=== PATIENT | male | born 1940 | race Caucasian/White ===

== ENCOUNTER → 2017-10-15 | Outpatient (CLI) | payer MEDICARE, BC ==
[2017-10-15 10:13] LABS: ALBUMIN 3.7 g/dL (3.4-5.0); ALBUMIN/GLOBULIN RATIO 1.1 (1.0-1.7); CALCIUM 9.5 mg/dL (8.5-10.1); CREATININE 1.2 mg/dL (0.7-1.3); GFR 58.7; POTASSIUM 4.8 mmol/L (3.5-5.1); TOTAL BILIRUBIN 0.4 mg/dL (0.2-1.0)
[2017-10-16 22:16] LABS: HEMOGLOBIN A1C 9.3 % (4.8-5.6)
== END | disposition home or self-care (01) ==
LOC: LAB 08:56
PROVIDERS: ATTEND Nurse Practitioner
DX: E78.5 Hyperlipidemia, unspecified (principal); E11.9 Type 2 diabetes mellitus without complications; I10 Essential (primary) hypertension; E78.00 Pure hypercholesterolemia, unspecified
CPT/HCPCS: 36415; 80053; 80061; 83036

== ENCOUNTER → 2018-03-22 | Outpatient (CLI) | payer MEDICARE, BC ==
[2018-03-22 10:03] LABS: ALBUMIN 3.4 g/dL (3.4-5.0); ALBUMIN/GLOBULIN RATIO 0.9 (1.0-1.7); CALCIUM 9.4 mg/dL (8.5-10.1); CREATININE 1.1 mg/dL (0.7-1.3); GFR 64.9; POTASSIUM 4.8 mmol/L (3.5-5.1); TOTAL BILIRUBIN 0.2 mg/dL (0.2-1.0); TOTAL PROTEIN 7.2 g/dL (6.4-8.2)
== END | disposition home or self-care (01) ==
LOC: LAB 08:27
PROVIDERS: ATTEND Nurse Practitioner
DX: E78.5 Hyperlipidemia, unspecified (principal)
CPT/HCPCS: 36415; 80053; 80061

== ENCOUNTER → 2018-10-10 | Outpatient (CLI) | payer MEDICARE, BC ==
[2018-10-10 10:35] LABS: ALBUMIN 3.2 g/dL (3.4-5.0); CALCIUM 9.3 mg/dL (8.5-10.1); CREATININE 1.1 mg/dL (0.7-1.3); GFR 64.7; POTASSIUM 4.7 mmol/L (3.5-5.1); TOTAL BILIRUBIN 0.3 mg/dL (0.2-1.0); TOTAL PROTEIN 6.5 g/dL (6.4-8.2)
== END | disposition home or self-care (01) ==
LOC: LAB 08:13
PROVIDERS: ATTEND Nurse Practitioner
DX: E78.5 Hyperlipidemia, unspecified (principal)
CPT/HCPCS: 36415; 80053; 80061

== ENCOUNTER → 2018-12-06 | Outpatient (CLI) | payer MEDICARE, BC ==
[2018-12-06 11:15] LABS: BASO % 1 % (0-3); EOS # 0.5 x10^3/uL (0.0-0.7); EOS % 8 % (0-3); HEMATOCRIT 41.4 % (39.0-53.0); HEMOGLOBIN 13.7 g/dL (13.0-17.5); LYMPH # 2.5 x10^3/uL (1.0-4.8); LYMPH % 38 % (24-48); MEAN CORPUSCULAR HEMOGLOBIN 28 pg (25-35); MEAN CORPUSCULAR HGB CONC 33 g/dL (31-37); MEAN CORPUSCULAR VOLUME 86 fL (79-100); MONO # 0.8 x10^3/uL (0.0-1.1); MONO % 12 % (0-9); NEUT # 2.7 x10^3uL (1.8-7.7); NEUT % 42 % (31-73); PLATELET COUNT 207 x10^3/uL (140-400); RED BLOOD COUNT 4.81 x10^6/uL (4.30-5.70); WHITE BLOOD COUNT 6.5 x10^3/uL (4.0-11.0)
[2018-12-06 11:23] LABS: ALBUMIN 3.4 g/dL (3.4-5.0); CREATININE 1.3 mg/dL (0.7-1.3); GFR 53.4; POTASSIUM 5.1 mmol/L (3.5-5.1); TOTAL BILIRUBIN 0.3 mg/dL (0.2-1.0); TOTAL PROTEIN 6.9 g/dL (6.4-8.2)
== END | disposition home or self-care (01) ==
LOC: LAB 10:32
PROVIDERS: ATTEND Internal Medicine Gastroenterology
DX: R10.13 Epigastric pain (principal)
CPT/HCPCS: 36415; 80053; 83690; 85025

== ENCOUNTER → 2020-01-05 | Outpatient (CLI) | payer BC, MEDICARE ==
--- NOTE | 2020-01-05 16:41 | RAD ---
EXAMINATION: SHOULDER BILAT 2+V CLINICAL HISTORY: Osteoarthritis bilateral shoulders TECHNIQUE: SHOULDER BILAT 2+V Number of Images/Views: 3 each COMPARISON: None FINDINGS: Glenohumeral joint alignment maintained bilaterally. Acromioclavicular joints maintained bilaterally. No acute fracture. Acromiohumeral interval maintained bilaterally. Amorphous calcification projected along the left humeral head/tuberosities may represent rotator cuff calcific tendinosis versus small joint body. Several amorphous calcifications projected along the right anterior glenohumeral joint and proximal humeral diaphysis may represent small joint bodies in the glenohumeral joint and biceps tendon sheath. IMPRESSION: Minimal degenerative changes bilateral shoulders. Probable joint bodies/calcific tendinosis as described. Electronically signed by: Oumar Chávez DO (01/05/2020 4:38 PM) [id number]
== END ==
LOC: DXRAD 16:04
PROVIDERS: ATTEND Physician Assistant
DX: M19.012 Primary osteoarthritis, left shoulder (principal); M19.011 Primary osteoarthritis, right shoulder
CPT/HCPCS: 73030

== ENCOUNTER → 2020-02-02 | Outpatient (CLI) | payer MEDICARE ==
[2020-02-02 09:05] LABS: ALBUMIN 3.6 g/dL (3.4-5.0); ALBUMIN/GLOBULIN RATIO 1.3 (1.0-1.7); CALCIUM 9.1 mg/dL (8.5-10.1); CREATININE 1.2 mg/dL (0.7-1.3); GFR 58.4; POTASSIUM 4.2 mmol/L (3.5-5.1); TOTAL BILIRUBIN 0.2 mg/dL (0.2-1.0); TOTAL PROTEIN 6.4 g/dL (6.4-8.2)
[2020-02-03 03:11] LABS: HEMOGLOBIN A1C 9.9 % (4.8-5.6)
== END ==
LOC: LAB 08:07
PROVIDERS: ATTEND Nurse Practitioner
DX: E78.5 Hyperlipidemia, unspecified (principal)
CPT/HCPCS: 36415; 80053; 80061; 83036

== ENCOUNTER → 2020-08-09 | Outpatient (CLI) | payer MEDICARE ==
[2020-08-09 10:38] LABS: ALBUMIN 3.6 g/dL (3.4-5.0); ALBUMIN/GLOBULIN RATIO 1.3 (1.0-1.7); CREATININE 1.5 mg/dL (0.7-1.3); POTASSIUM 4.9 mmol/L (3.5-5.1); TOTAL BILIRUBIN 0.4 mg/dL (0.2-1.0); TOTAL PROTEIN 6.4 g/dL (6.4-8.2)
[2020-08-10 01:10] LABS: HEMOGLOBIN A1C 11.7 % (4.8-5.6)
== END ==
LOC: LAB 08:31
PROVIDERS: ATTEND Nurse Practitioner
DX: E11.22 Type 2 diabetes mellitus with diabetic chronic kidney disease (principal)
CPT/HCPCS: 36415; 80053; 80061; 83036

== ENCOUNTER 2021-07-28 16:04 | Emergency (ER) | payer MEDICARE ==
[~2021-07-28] VITALS: Ht 175.3 cm; Wt 82.7 kg
[2021-07-28] MEDS ORDERED: NEOMY/BACITR/POLYMYXIN OINT PACKET. TP ONE (16:30)
[2021-07-28] MEDS ORDERED: DIPHTH,PERTUSS(ACELL),TET TOX 0.5 ML DISP.SYRIN. VAX IM ONE (16:30)
[2021-07-28] MEDS ORDERED: LIDOCAINE 2%/EPI 1:100,000 20 ML VIAL. IJ ONE (16:30)
[2021-07-28] MEDS ORDERED: IV NORMAL SALINE 1,000ML 1,000 ML IV ONE (16:30)
[2021-07-28] MEDS ORDERED: IOHEXOL 350 MG/ML 100 ML VIAL. IV ONE (17:00)
[2021-07-28 17:07] LABS: BASO % 1 % (0-3); EOS # 0.4 x10^3/uL (0.0-0.7); EOS % 5 % (0-3); HEMATOCRIT 33.3 % (39.0-53.0); HEMOGLOBIN 11.1 g/dL (13.0-17.5); LYMPH # 2.5 x10^3/uL (1.0-4.8); LYMPH % 28 % (24-48); MEAN CORPUSCULAR HEMOGLOBIN 29 pg (25-35); MEAN CORPUSCULAR HGB CONC 33 g/dL (31-37); MEAN CORPUSCULAR VOLUME 87 fL (79-100); MONO # 1.4 x10^3/uL (0.0-1.1); MONO % 15 % (0-9); NEUT # 4.7 x10^3uL (1.8-7.7); NEUT % 52 % (31-73); PLATELET COUNT 174 x10^3/uL (140-400); RED BLOOD COUNT 3.83 x10^6/uL (4.30-5.70); RED CELL DISTRIBUTION WIDTH 14.9 % (11.5-14.5)
[2021-07-28 17:12] LABS: CALCIUM 8.9 mg/dL (8.5-10.1); CREATININE 2.2 mg/dL (0.7-1.3); GFR 28.9; POTASSIUM 4.8 mmol/L (3.5-5.1)
--- NOTE | 2021-07-28 17:35 | PHYS DOC ---
Past History Past Medical History: CAD, UT Past Surgical History: Coronary Bypass Surgery (triple bypass), Knee Replacement (Left knee) Alcohol Use: None General Adult EDM: Chief Complaint: MECHANICAL FALL HPI: HPI: Patient is a 81-year-old male who presents with complaint of mechanical fall. Patient reports receiving a skin tear on the left upper arm secondary to tripping and falling while attempting to feed his chickens. Patient reports "it was dark" and did not see a hole resulting in him tripping and falling into chicken wire. Patient also reports falling while trying to get out of bed on 07/28/2021 PM. Patient struck his head on a coffee table resulting in a 3 cm laceration superior to the right eyebrow and epistaxis. Patient unsure is he actually lost consciousness during either events. Spouse reports he did loss consciousness on this last episode. Patient reports "cutting his blood pressure medication in half" roughly 2 weeks prior and states his blood pressure runs "in the low 100s or high 90s" throughout the day. Patient also recently tested positive on home COVID testing. Reports several family members also recently tested positive. Patient has a past surgical history of a triple bypass CABG and left knee replacement. Patient was unable to reports medications he takes on a daily basis. Patient denies fever, nausea, vomiting, skin rash, hematochezia, or dysuria. Patient denies having any previous syncopal or seizure-like episodes. Patient interview limited to severe deafness. HPI limited due to patient being hard of hearing. Review of Systems: Review of Systems: Constitutional: Denies fever or chills Eyes: Denies redness or eye pain, denies any acute visual changes HENT: Denies nasal congestion or sore throat. Reports laceration superior L eyebrow. Reports epistaxis Respiratory: Denies cough or shortness of breath Cardiovascular: Denies chest pain or palpitations GI: Denies abdominal pain, nausea, or vomiting : Denies dysuria or hematuria Musculoskeletal: Denies back pain or joint pain Integument: Denies rash. Reports skin tear left upper arm, laceration above L eyebrow, and nasal bridge abrasion Neurologic: Denies headache, focal weakness or sensory changes Complete systems were reviewed and found to be within normal limits, except as documented in this note. Current Medications: Current Meds: Current Medications Medications (Trade) Dose Ordered Sig/Robert Start Time Stop Time Status Last Admin Dose Admin Diphtheria/ Tetanus/Acell Pertussis (Boostrix) 0.5 ml ONCE ONCE 07/28/21 16:30 07/28/21 16:36 DC 07/28/21 16:30 0.5 ML Iohexol (Omnipaque 350 Mg/ml) 100 ml 1X ONCE 07/28/21 17:00 07/28/21 17:01 DC Lidocaine/ Epinephrine (Xylocaine 2%-Epi 1:100,000) 20 ml 1X ONCE 07/28/21 16:30 07/28/21 16:36 DC 07/28/21 16:30 20 ML Neomycin/ Polymyxin/ Bacitracin (Triple Antibiotic Ointment) 1 pkt 1X ONCE 07/28/21 16:30 07/28/21 16:36 DC 07/28/21 16:30 1 PKT Sodium Chloride 1,000 ml @ 1,000 mls/hr 1X ONCE 07/28/21 16:30 07/28/21 17:29 07/28/21 16:30 1,000 MLS/HR Allergies: Allergies: Allergies Coded Allergies Type Severity Reaction Last Updated Verified No Known Drug Allergies 07/28/21 No Physical Exam: PE: Constitutional: Well developed, elderly, no acute distress, non-toxic appearance HENT: Normocephalic, 3cm laceration superior R eyebrow Eyes: PERRL, EOMI, R conjunctiva normal, L conjunctiva w/ diffusion hemorrhage medial to iris, no discharge, ecchymosis left lower eyelid, negative battlesign Neck: Normal range of motion, no midline tenderness, supple Lungs & Thorax: No respiratory distress, equal chest rise and fall Abdomen: Soft, no tenderness; pelvis stable and nontender Skin: Warm, dry, no erythema, no rash, skin tear to left upper arm. 3 cm laceration to superior L eyebrow Back: No midline tenderness, no CVA tenderness Extremities: No tenderness, ROM intact, no edema Neurologic: Alert and oriented X 3, normal motor function, normal sensory function, no focal deficits noted Psychologic: Affect normal, judgment normal Current Patient Data: Labs: Laboratory Tests Test 07/28/21 16:10 White Blood Count 9.0 x10^3/uL (4.0-11.0) Red Blood Count 3.83 x10^6/uL (4.30-5.70) L Hemoglobin 11.1 g/dL (13.0-17.5) L Hematocrit 33.3 % (39.0-53.0) L Mean Corpuscular Volume 87 fL (79-100) Mean Corpuscular Hemoglobin 29 pg (25-35) Mean Corpuscular Hemoglobin Concent 33 g/dL (31-37) Red Cell Distribution Width 14.9 % (11.5-14.5) H Platelet Count 174 x10^3/uL (140-400) Neutrophils (%) (Auto) 52 % (31-73) Lymphocytes (%) (Auto) 28 % (24-48) Monocytes (%) (Auto) 15 % (0-9) H Eosinophils (%) (Auto) 5 % (0-3) H Basophils (%) (Auto) 1 % (0-3) Neutrophils # (Auto) 4.7 x10^3uL (1.8-7.7) Lymphocytes # (Auto) 2.5 x10^3/uL (1.0-4.8) Monocytes # (Auto) 1.4 x10^3/uL (0.0-1.1) H Eosinophils # (Auto) 0.4 x10^3/uL (0.0-0.7) Basophils # (Auto) 0.0 x10^3/uL (0.0-0.2) Sodium Level 139 mmol/L (136-145) Potassium Level 4.8 mmol/L (3.5-5.1) Chloride Level 99 mmol/L (98-107) Carbon Dioxide Level 30 mmol/L (21-32) Anion Gap 10 (6-14) Blood Urea Nitrogen 48 mg/dL (8-26) H Creatinine 2.2 mg/dL (0.7-1.3) H Estimated GFR (Cockcroft-Gault) 28.9 BUN/Creatinine Ratio 22 (6-20) H Glucose Level 109 mg/dL (70-99) H Calcium Level 8.9 mg/dL (8.5-10.1) Total Bilirubin Pending Aspartate Amino Transferase (AST) Pending Alanine Aminotransferase (ALT) Pending Alkaline Phosphatase Pending Creatine Kinase Pending Creatine Kinase MB (Mass) Pending Creatine Kinase MB Relative Index Pending Total Protein Pending Albumin Pending Albumin/Globulin Ratio Pending Vital Signs: Vital Signs Date Time Temp Pulse Resp B/P (MAP) Pulse Ox O2 Delivery O2 Flow Rate FiO2 07/28/21 16:13 98.4 70 16 104/54 (71) 100 Room Air EKG: EKG: @1738 07/28/2021 normal sinus rhythm, no ST segment elevations, low voltage QRS noted, Q-wave noted in lead III, HR 66 bpm, UT 176 ms, QRS 98 ms, QT/QTc 406/427 ms. Heart Score: C/O Chest Pain: N/A Course & Med Decision Making: Course & Med Decision Making Pertinent Labs and Imaging studies reviewed. (See chart for details) Patient is a 81-year-old male who presents with complaint of mechanical fall. Patient reports receiving skin tears on the left upper arm secondary to tripping and falling while attempting to feed his chickens. Patient reports "it was dark" and did not see a hole resulting in him tripping and falling into chickenwire. Patient also reports falling while trying to get out of bed on 07/28/2021 PM. Patient struck his head on a coffee table resulting in a 3 cm laceration superior to the left eyebrow and epistaxis. Patient neurologically intact. CT head/maxillofacial/cervical spine pending. EKG stable. Labs obtained and pending. Tetanus updated. Laceration requiring repair. 1800-signout given to Dr. Judd for further evaluation and final disposition. Discussed current findings and plan with patient and family, who acknowledge u nderstanding and agreement. Raquel Disclaimer: Raquel Disclaimer: This electronic medical record was generated, in whole or in part, using a voice recognition dictation system. Departure Departure: Impression: Primary Impression: Syncope Qualified Codes: R55 - Syncope and collapse Additional Impressions: Laceration of face Qualified Codes: S01.81XA - Laceration without foreign body of other part of head, initial encounter Skin tear Referrals: SHANTHI MURO MD (PCP) OSVALDO MARTINEZ DO July 28, 2021 17:35
[2021-07-28 17:39] LABS: ALBUMIN 3.3 g/dL (3.4-5.0); ALBUMIN/GLOBULIN RATIO 1.3 (1.0-1.7); TOTAL BILIRUBIN 0.5 mg/dL (0.2-1.0); TOTAL PROTEIN 5.9 g/dL (6.4-8.2)
[2021-07-28 18:01] LABS: INFLUENZA A PATIENT NEGATIVE (NEGATIVE); INFLUENZA B PATIENT NEGATIVE (NEGATIVE)
--- NOTE | 2021-07-28 18:34 | RAD ---
CT HEAD AND C-SPINE WO, CT MAXILLOFACIAL WITHOUT CONTRAST dated 07/28/2021 5:38 PM. Comparison: None. Clinical Indication: Reason: pain s/p fall / Spl. Instructions: / History: HEAD AND NECK PAIN Technical factors: Contiguous 5 mm axial images of the head were obtained from the skullbase to the v ertex. No contrast was administered. In addition, 3 mm axial images of the cervical spine and maxillo facial bones were acquired with thin cut coronal and sagittal reconstructions. One or more of the following individualized dose reduction techniques were utilized for this examinat ion: 1. Automated exposure control 2. Adjustment of the mA and/or kV according to patient size 3. Use of iterative reconstruction technique Findings head: Ventricles and sulci are mildly prominent for age. No midline shift or mass effect. Minimal patchy lo w density in the deep/subcortical periventricular white matter. No hemorrhage or extra-axial collecti on. Posterior fossa and brainstem unremarkable. There is a soft tissue laceration over the left for head. No underlying calvarial fracture. IMPRESSION HEAD: 1. No evidence of acute intracranial hemorrhage or mass. 2. Mild chronic small vessel ischemic changes and atrophy. 3. Soft tissue swelling over the left supraorbital region with no evidence of underlying fracture. Findings maxillofacial: There are fractures of the bilateral nasal bone. The left-sided nasal bone fracture is mildly depress ed and there is mild displacement. There is likely a fracture of the nasal septum anteriorly with sli ght nasal septal deviation of the right. The orbital dobbs and maxillary dobbs are intact. Zygomatic arches are intact. No evidence of mandibular fracture. There is mild mucosal thickening of the bilateral maxillary and ethmoid sinuses. Frontal sinuses and sphenoid sinuses are clear. Mastoid air cells and middle ears are clear. No additional soft tissue ab normality. IMPRESSION MAXILLOFACIAL: 1. Bilateral nasal bone fractures, mildly depressed on the left. 2. Mild sinus disease. Findings cervical spine: Images were acquired from the skull base to T1. There is straightening of the normal cervical lordosi s, otherwise sagittal alignment is anatomic. Vertebral body heights are maintained. No prevertebral s oft tissue swelling. Posterior elements are intact. No fractures are identified. Moderate endplate hypertrophic changes. Moderate multilevel disc space narrowing and uncovertebral sp urring. There is mild multilevel facet arthropathy. There is resultant mild central stenosis at C3-C4 , C4-C5, C5-C6 and C6-C7. There is also mild to moderate foraminal narrowing at the mid to lower cerv ical levels. Visualized soft tissue structures are unremarkable. Low-density focus in the left lobe thyroid gland measuring about 10 mm. There is also a low-density focus in the right lobe thyroid gland measuring 8 mm. Limited images of the lung apices are grossly clear. Emphysematous changes are noted. IMPRESSION CERVICAL SPINE: 1. No evidence of fracture or malalignment. 2. Moderate multilevel spondylosis. Electronically signed by: Woo Mills MD (07/28/2021 6:32 PM) ISAAC
--- NOTE | 2021-07-28 18:38 | PHYS DOC ---
Past History Past Medical History: CAD, [place] Past Surgical History: Coronary Bypass Surgery (triple bypass), Knee Replacement (Left knee) Alcohol Use: None General Adult EDM: Chief Complaint: MECHANICAL FALL HPI: HPI: Patient is an 81-year-old male that was initially seen by Dr. Martinez. Please see his note for H&P and HPI. I assumed care at 1800 tonight. The patient had a fall versus syncope or near syncope at home. He sustained lacerations of his nose, underneath his left eyelid as well as his forehead. The patient reports he does not believe he lost consciousness. He denies headache, dizziness, shira tigo. He denies chest pain, dyspnea, palpitations. He denies abdominal pain, nausea, vomiting. At time of transfer of care, CT imaging and laboratory exams were pending. The patient is very adamant that he does not wish to stay for any admission or for further evaluation beyond the ED today. He does consent to having laceration repair. Please see associated notes for details of laceration repair. Review of Systems: Review of Systems: See Dr. Martinez's note, see HPI. Current Medications: Current Meds: Current Medications Medications (Trade) Dose Ordered Sig/Robert Start Time Stop Time Status Last Admin Dose Admin Diphtheria/ Tetanus/Acell Pertussis (Boostrix) 0.5 ml ONCE ONCE 07/28/21 16:30 07/28/21 16:36 DC 07/28/21 16:30 0.5 ML Iohexol (Omnipaque 350 Mg/ml) 100 ml 1X ONCE 07/28/21 17:00 07/28/21 17:01 DC Lidocaine/ Epinephrine (Xylocaine 2%-Epi 1:100,000) 20 ml 1X ONCE 07/28/21 16:30 07/28/21 16:36 DC 07/28/21 16:30 20 ML Neomycin/ Polymyxin/ Bacitracin (Triple Antibiotic Ointment) 1 pkt 1X ONCE 07/28/21 16:30 07/28/21 16:36 DC 07/28/21 16:30 1 PKT Sodium Chloride 1,000 ml @ 1,000 mls/hr 1X ONCE 07/28/21 16:30 07/28/21 17:29 DC 07/28/21 16:30 1,000 MLS/HR Allergies: Allergies: Allergies Coded Allergies Type Severity Reaction Last Updated Verified No Known Drug Allergies 07/28/21 No Physical Exam: PE: Constitutional: Well developed, well nourished, no acute distress, non-toxic appearance. [] HENT: There is a rather large subcutaneous, round laceration of his forehead, just above his left eyebrow, just to the left of midline. No galeal laceration, the fascia is exposed. No visible contamination of the wound. No step-offs or cephalhematoma. No tenderness. He does have a V-shaped subcutaneous laceration of anterior nose. There is subtle left periorbital contusion. Soft tissue swelling of the nasal bridge is noted. Septum is midline. No rhinorrhea or epistaxis. No septal hematoma is noted. Eyes: PERRL, EOMI, left medial subconjunctival hemorrhage. No hyphema. Mild left periorbital contusion. There is a superficial laceration just below the left eyelid, not involving the lid margin. No pain with extraocular movements. No enophthalmos or exophthalmos noted. Neck: Normal range of motion, no tenderness, supple, no stridor. [] Cardiovascular:Heart rate regular rhythm Lungs & Thorax: Bilateral breath sounds clear to auscultation [] Skin: Skin tear and superficial abrasion of the left shoulder and left arm. Multiple superficial contusions of the left hand and left arm. Laceration of the left forehead, laceration below the left eye, laceration of the nasal bridge. See above. Back: No tenderness, no CVA tenderness. [] Extremities: No tenderness, no cyanosis, no clubbing, ROM intact, no edema. [] Neurologic: Alert and oriented X 3, normal motor function, normal sensory function, no focal deficits noted. 5 out of 5 motor strength all 4 extremities. Cranial nerves II through XII grossly intact. Speech is clear and fluent. Gait is steady. No gait ataxia. Psychologic: Affect normal, judgement normal, mood normal. [] Current Patient Data: Labs: Laboratory Tests Test 07/28/21 16:10 07/28/21 17:03 White Blood Count 9.0 x10^3/uL (4.0-11.0) Red Blood Count 3.83 x10^6/uL (4.30-5.70) L Hemoglobin 11.1 g/dL (13.0-17.5) L Hematocrit 33.3 % (39.0-53.0) L Mean Corpuscular Volume 87 fL (79-100) Mean Corpuscular Hemoglobin 29 pg (25-35) Mean Corpuscular Hemoglobin Concent 33 g/dL (31-37) Red Cell Distribution Width 14.9 % (11.5-14.5) H Platelet Count 174 x10^3/uL (140-400) Neutrophils (%) (Auto) 52 % (31-73) Lymphocytes (%) (Auto) 28 % (24-48) Monocytes (%) (Auto) 15 % (0-9) H Eosinophils (%) (Auto) 5 % (0-3) H Basophils (%) (Auto) 1 % (0-3) Neutrophils # (Auto) 4.7 x10^3uL (1.8-7.7) Lymphocytes # (Auto) 2.5 x10^3/uL (1.0-4.8) Monocytes # (Auto) 1.4 x10^3/uL (0.0-1.1) H Eosinophils # (Auto) 0.4 x10^3/uL (0.0-0.7) Basophils # (Auto) 0.0 x10^3/uL (0.0-0.2) Prothrombin Time 11.0 SEC (9.4-11.4) Prothrombin Time INR 1.1 (0.9-1.1) Activated Partial Thromboplast Time 24 SEC (23-33) Sodium Level 139 mmol/L (136-145) Potassium Level 4.8 mmol/L (3.5-5.1) Chloride Level 99 mmol/L (98-107) Carbon Dioxide Level 30 mmol/L (21-32) Anion Gap 10 (6-14) Blood Urea Nitrogen 48 mg/dL (8-26) H Creatinine 2.2 mg/dL (0.7-1.3) H Estimated GFR (Cockcroft-Gault) 28.9 BUN/Creatinine Ratio 22 (6-20) H Glucose Level 109 mg/dL (70-99) H Lactic Acid Level 1.5 mmol/L (0.4-2.0) Calcium Level 8.9 mg/dL (8.5-10.1) Total Bilirubin 0.5 mg/dL (0.2-1.0) Aspartate Amino Transferase (AST) 42 U/L (15-37) H Alanine Aminotransferase (ALT) 79 U/L (16-63) H Alkaline Phosphatase 57 U/L (46-116) Creatine Kinase 133 U/L (39-308) Creatine Kinase MB (Mass) 1.0 ng/mL (0.0-3.6) Creatine Kinase MB Relative Index 0.8 % (0-4) Troponin I High Sensitivity 8 ng/L (4-75) Total Protein 5.9 g/dL (6.4-8.2) L Albumin 3.3 g/dL (3.4-5.0) L Albumin/Globulin Ratio 1.3 (1.0-1.7) Influenza Type A (Rapid) Negative (NEGATIVE) Influenza Type B (Rapid) Negative (NEGATIVE) SARS-CoV-2 Antigen (Rapid) Positive (NEGATIVE) *A Vital Signs: Vital Signs Date Time Temp Pulse Resp B/P (MAP) Pulse Ox O2 Delivery O2 Flow Rate FiO2 07/28/21 18:19 88 16 125/44 (71) 98 Room Air 07/28/21 16:13 98.4 EKG: EKG: [] Radiology/Procedures: Radiology/Procedures: IMAGING REPORT Signed PATIENT: MARGE PAEZ ACCOUNT: [id number] : 1940 LOCATION: ER AGE: 81 SEX: M EXAM STATUS: REG ER ORD. PHYSICIAN: WOO MARTINEZ DO REASON: pain s/p fall PROCEDURE: CT HEAD AND CERVICAL SPINE WO CT HEAD AND C-SPINE WO, CT MAXILLOFACIAL WITHOUT CONTRAST dated 07/28/2021 5:38 PM. Comparison: None. Clinical Indication: Reason: pain s/p fall / Spl. Instructions: / History: HEAD AND NECK PAIN Technical factors: Contiguous 5 mm axial images of the head were obtained from the skullbase to the vertex. No contrast was administered. In addition, 3 mm axial images of the cervical spine and maxillofacial bones were acquired with thin cut coronal and sagittal reconstructions. One or more of the following individualized dose reduction techniques were utilized for this examination: 1. Automated exposure control 2. Adjustment of the mA and/or kV according to patient size 3. Use of iterative reconstruction technique Findings head: Ventricles and sulci are mildly prominent for age. No midline shift or mass effect. Minimal patchy low density in the deep/subcortical periventricular white matter. No hemorrhage or extra-axial collection. Posterior fossa and brainstem unremarkable. There is a soft tissue laceration over the left for head. No underlying calvarial fracture. IMPRESSION HEAD: 1. No evidence of acute intracranial hemorrhage or mass. 2. Mild chronic small vessel ischemic changes and atrophy. 3. Soft tissue swelling over the left supraorbital region with no evidence of underlying fracture. Findings maxillofacial: There are fractures of the bilateral nasal bone. The left-sided nasal bone fracture is mildly depressed and there is mild displacement. There is likely a fracture of the nasal septum anteriorly with slight nasal septal deviation of the right. The orbital dobbs and maxillary dobbs are intact. Zygomatic arches are intact. No evidence of mandibular fracture. There is mild mucosal thickening of the bilateral maxillary and ethmoid sinuses. Frontal sinuses and sphenoid sinuses are clear. Mastoid air cells and middle ears are clear. No additional soft tissue abnormality. IMPRESSION MAXILLOFACIAL: 1. Bilateral nasal bone fractures, mildly depressed on the left. 2. Mild sinus disease. Findings cervical spine: Images were acquired from the skull base to T1. There is straightening of the normal cervical lordosis, otherwise sagittal alignment is anatomic. Vertebral body heights are maintained. No prevertebral soft tissue swelling. Posterior elements are intact. No fractures are identified. Moderate endplate hypertrophic changes. Moderate multilevel disc space narrowing and uncovertebral spurring. There is mild multilevel facet arthropathy. There is resultant mild central stenosis at C3-C4, C4-C5, C5-C6 and C6-C7. There is also mild to moderate foraminal narrowing at the mid to lower cervical levels. Visualized soft tissue structures are unremarkable. Low-density focus in the left lobe thyroid gland measuring about 10 mm. There is also a low-density focus in the right lobe thyroid gland measuring 8 mm. Limited images of the lung apices are grossly clear. Emphysematous changes are noted. IMPRESSION CERVICAL SPINE: 1. No evidence of fracture or malalignment. 2. Moderate multilevel spondylosis. Electronically signed by: Woo Mills MD (07/28/2021 6:32 PM) [facility] [place] [facility] [place] AND SIGNED BY: WOO MILLS MD DATE: 07/28/211823 CC: SHANTHI MURO MD; WOO MARTINEZ DO ~ IMAGING REPORT Signed PATIENT: MARGE PAEZ ACCOUNT: [id number] : 1940 LOCATION: ER AGE: 81 SEX: M EXAM STATUS: REG ER ORD. PHYSICIAN: WOO MARTINEZ DO REASON: pain s/p fall, COVID+ PROCEDURE: CT CHEST WO CONTRAST CT chest without contrast dated 07/28/2021. COMPARISON: None. INDICATION: Pain after fall. TECHNIQUE: Contiguous axial imaging the chest performed without the administration of diffuse contrast. One or more of the following individualized dose reduction techniques were utilized for this examination: 1. Automated exposure control 2. Adjustment of the mA and/or kV according to patient size 3. Use of iterative reconstruction technique FINDINGS: Heart size mildly enlarged. No pericardial effusion. Coronary artery calcifications with evidence prior CABG procedure. Ectasia of the ascending thoracic aorta measuring 4.2 cm transverse. No mediastinal, hilar or axillary lymphadenopathy. There are low-density nodules in the bilateral thyroid gland measuring 10 mm on the left and 12 mm on the right. Central airways are patent. There is moderate emphysema. Scattered calcified granuloma. No consolidation or pleural effusion. No pneumothorax. Images of the upper abdomen are unremarkable. There is a small hiatal hernia. Gallbladder surgically absent. Bone window show no acute findings. There are old healed rib fractures on the right. Multilevel spondylosis. IMPRESSION: 1. No acute abnormality of chest. 2. Moderate emphysema. 3. Coronary artery calcifications and mild aneurysmal dilation of the ascending thoracic aorta. 4. Indeterminate low-density nodule of the bilateral thyroid gland. Electronically signed by: Woo Mills MD (07/28/2021 6:36 PM) [facility] [place] AND SIGNED BY: WOO MILLS MD DATE: 07/28/211831 CC: SHANTHI MURO MD; ORLANDO LOAIZA DO; WOO MARTINEZ DO ~ Heart Score: C/O Chest Pain: No Risk Factors: Risk Factors: DM, Current or recent (<one month) smoker, HTN, HLP, family history of CAD, obesity. Risk Scores: Score 0 - 3: 2.5% MACE over next 6 weeks - Discharge Home Score 4 - 6: 20.3% MACE over next 6 weeks - Admit for Clinical Observation Score 7 - 10: 72.7% MACE over next 6 weeks - Early Invasive Strategies Course & Med Decision Making: Course & Med Decision Making Pertinent Labs and Imaging studies reviewed. (See chart for details) The patient tolerated laceration repair well. His tetanus is up-to-date. He declines pain medications. I have discussed all of the findings, differential diagnosis and plan of care with him. He continues to adamantly declined admission. I recommend he contact his primary care physician tomorrow to discuss his symptoms further. He also has a nasal fracture, with overlying laceration. This will be treated as an open fracture. I given a dose of oral Keflex, he is prescribed Keflex for discharge home. Wound care instructions are provided. Strict return precautions are given. He verbalizes understanding. He is awake, alert, oriented x3, verbalizes understanding of risks of leaving/not being admitted, including missed or serious diagnoses, such as [place], TIA, CVA, delayed hemorrhage, permanent disability or even . Dragon Disclaimer: Dragon Disclaimer: This electronic medical record was generated, in whole or in part, using a voice recognition dictation system. Laceration Repair Lac Repair Indication: Lacerations of the left forehead and of the nose Procedure: The patient was seated on the ED gurney. He gave verbal consent for laceration repair. 1% lidocaine with epinephrine was utilized for local anesthesia. Adequate anesthesia was achieved. His wounds were cleaned with Betadine, copiously irrigated with sterile normal saline. The wounds were explored, no foreign bodies are noted. For the left forehead laceration, a total of 3 subcuticular 4-0 Vicryl sutures were placed. Adequate deep closure is established. A total of 5 simple interrupted 4-0 Ethilon sutures were placed to the skin. Adequate wound eversion, hemostasis and closure was achieved. For the nasal laceration, a total of three 4-0 Ethilon simple interrupted sutures were placed. Adequate wound eversion, hemostasis and closure was achieved. For the superficial laceration below his left eyelid, I utilized Dermabond. Adequate closure was established. Total repaired wound length: Forehead laceration length approximately 3 cm. Nasal laceration approximately 2 cm. Laceration below the left eye approximately 1 cm. The patient tolerated the procedure well. Complications: None. Departure Departure: Impression: Primary Impression: Syncope Qualified Codes: R55 - Syncope and collapse Additional Impressions: Skin tear Laceration of face Qualified Codes: S01.81XA - Laceration without foreign body of other part of head, initial encounter Forehead laceration Qualified Codes: S01.81XA - Laceration without foreign body of other part of head, initial encounter Nasal laceration Qualified Codes: S01.21XA - Laceration without foreign body of nose, initial encounter Open nasal fracture Qualified Codes: S02.2XXB - Fracture of nasal bones, initial encounter for open fracture Subconjunctival hemorrhage of left eye Disposition: HOME / SELF CARE / HOMELESS Condition: STABLE Referrals: SHANTHI MURO MD (PCP) Patient Instructions: Facial Laceration, Fall Prevention and Home Safety, Laceration Care, Adult, Nasal Fracture, Subconjunctival Hemorrhage, Syncope Additional Instructions: Return to the ER for chest pain, shortness of breath, severe dizziness, severe headache, vomiting, focal weakness, if you are injured or sustained any other trauma. Keep your wounds clean and dry. You do have a nasal bone fracture, with overlying laceration, so this will be treated as an open fracture. Please take the antibiotics as directed until gone. Use plain soap and water to clean your wounds. Return to the ER immediately for wound redness, pain, severe swelling, yellow or green wound drainage or any other concerns. You may receive your primary care doctor or return to the ER in 7 days for suture removal. Scripts Cephalexin (CEPHALEXIN) 500 Mg Tablet 1 TAB PO BID for wound prophylaxis for 5 Days, #10 TAB Prov: ORLANDO LOAIZA DO 07/28/21 ORLANDO LOAIZA DO July 28, 2021 18:38
--- NOTE | 2021-07-28 18:38 | RAD ---
CT chest without contrast dated 07/28/2021. COMPARISON: None. INDICATION: Pain after fall. TECHNIQUE: Contiguous axial imaging the chest performed without the administration of diffuse contrast. One or more of the following individualized dose reduction techniques were utilized for this examinat ion: 1. Automated exposure control 2. Adjustment of the mA and/or kV according to patient size 3. Use of iterative reconstruction technique FINDINGS: Heart size mildly enlarged. No pericardial effusion. Coronary artery calcifications with evidence alma or CABG procedure. Ectasia of the ascending thoracic aorta measuring 4.2 cm transverse. No mediastina l, hilar or axillary lymphadenopathy. There are low-density nodules in the bilateral thyroid gland me asuring 10 mm on the left and 12 mm on the right. Central airways are patent. There is moderate emphysema. Scattered calcified granuloma. No consolidat ion or pleural effusion. No pneumothorax. Images of the upper abdomen are unremarkable. There is a small hiatal hernia. Gallbladder surgically absent. Bone window show no acute findings. There are old healed rib fractures on the right. Multilevel spond ylosis. IMPRESSION: 1. No acute abnormality of chest. 2. Moderate emphysema. 3. Coronary artery calcifications and mild aneurysmal dilation of the ascending thoracic aorta. 4. Indeterminate low-density nodule of the bilateral thyroid gland. Electronically signed by: Woo Mills MD (07/28/2021 6:36 PM) [facility]
[2021-07-28] MEDS ORDERED: CEPHALEXIN 250 MG CAPSULE PO ONE (20:15)
[2021-07-28] MEDS ORDERED: CEPH500T PO (20:18)
[2021-07-28 20:35] VITALS: BP 124/62
--- NOTE | 2021-07-28 20:53 | EKG ---
[facility] ED [facility] [address] [place] [id number] Test Date: 2021-07-28 Test Time: 17:38:35 Pat Name: MARGE PAEZ Department: Room: Gender: M [employer]: : 1940 Requested By: OSVALDO MARTINEZ Order Number: [id number] Reading MD: José Luis Camacho MD Measurements Intervals [place] Rate: 66 P: 47 CT: 176 QRS: 55 QRSD: 98 T: 52 QT: 406 QTc: 427 Interpretive Statements SINUS RHYTHM Electronically Signed On 08-01-2021 9:04:01 CDT by José Luis Camacho MD
== END 2021-07-28 20:42 | disposition home or self-care (01) ==
LOC: ER 16:04
DX: U07.1 COVID-19 (principal); S02.2XXB Fracture of nasal bones, initial encounter for open fracture; S01.81XA Laceration without foreign body of other part of head, initial encounter; S01.112A Laceration without foreign body of left eyelid and periocular area, initial encounter; S41.112A Laceration without foreign body of left upper arm, initial encounter; S60.222A Contusion of left hand, initial encounter; H11.32 Conjunctival hemorrhage, left eye; R55 Syncope and collapse; I25.810 Atherosclerosis of coronary artery bypass graft(s) without angina pectoris; I25.2 Old myocardial infarction; W01.198A Fall on same level from slipping, tripping and stumbling with subsequent striking against other object, initial encounter; Y93.89 Activity, other specified; Y92.89 Other specified places as the place of occurrence of the external cause; Y99.8 Other external cause status
CPT/HCPCS: 12014; 36415; 70450; 70486; 71250; 72125; 80053; 82553; 83605; 84484; 85025; 85610; 85730; 87428; 90471; 90715; 93005; 96360; 96361; 99285; J7030